=== PATIENT | male | born 1975 | race Caucasian/White ===

== ENCOUNTER 2019-12-20 08:52 | Outpatient (CLI) | payer BC, SELFPAY ==
--- NOTE | 2019-12-20 08:15 | XR_ITS ---
WS: [id number] KUB, 12/20/2019 Clinical Data: KIDNEY STONE Comparison: KUB, 12/19/2017. Findings: No abnormal intraabdominal masses or calcifications are seen. There is no dilatated small bowel or ev idence of obstruction. There is a moderate amount of fecal material throughout the colon. XR/XR KUB [id number] Impression: Negative KUB.
== END 2019-12-20 08:53 | disposition home or self-care (01) ==
LOC: RAD 08:56
PROVIDERS: Family Provider Internal Medicine; PCP Internal Medicine; Visit Provider Urology
DX: N20.0 Calculus of kidney (principal)
CPT/HCPCS: 74018; 81001

== ENCOUNTER → 2020-05-27 14:21 | Outpatient (BNVA) | payer BC, SELFPAY | PROVIDERS: Family Provider Internal Medicine; PCP Family Medicine; Visit Provider Surgery | DX: Z11.59 Encounter for screening for other viral diseases (principal); K42.9 Umbilical hernia without obstruction or gangrene | CPT/HCPCS: 87635 ==

== ENCOUNTER 2020-05-30 12:26 | Outpatient (CLI) | payer BC, SELFPAY ==
--- NOTE | 2020-05-30 14:00 | CT_ITS ---
WS: [id number] CT ABDOMEN AND PELVIS WITH CONTRAST HISTORY: K42.0 - Umbilical hernia with obstruction, without gangrene TECHNIQUE: Imaging performed of the abdomen and pelvis with IV contrast. Single phase imaging of the abdomen. Coronal and sagittal reformats are submitted. All CT scans at [facility] use at least one of these dose optimization techniques: automated exposure control; mA and/or kV adjustment per patient size (includes targeted exams where dose is matched to clinical indication); or iterativ e reconstruction. IV CONTRAST: Omnipaque 300; 95 mL IV. Oral contrast: No DLP: 902.85 mGy.cm COMPARISON: 05/23/2014 Lower thorax: Benign calcified granuloma LEFT lung base. Heart is normal size. Small hiatal hernia. Liver/biliary system: Normal size with no intrahepatic dilatation. Gallbladder: Normal. No gallstones or wall thickening. No pericholecystic fluid. Pancreas: Normal. Spleen: Normal. Adrenal glands: Normal. Right kidney: Normal. Left kidney: Normal. Aorta: Normal. Lymphadenopathy: None. Free fluid: None. GI tract: Normal appendix. No GI tract obstruction. Numerous diverticula in the distal and descending colon. No acute inflammatory changes. Abdominal wall: Umbilical hernia contains fat. The fat within the umbilical hernia is reticulated wit h stranding suggesting some ongoing fat necrosis and inflammation. No free fluid. Pelvis: Normal. Bones: Unremarkable. CT/CT abdomen pelvis w con* [id number] IMPRESSION: 1. Umbilical hernia containing fat with soft tissue reticulations. Findings ar e consistent with mild fat necrosis of the omental fat and the umbilical hernia . 2. Normal appendix. Next number no renal obstruction. 3. Colonic diverticulosis without acute diverticulitis.
== END 2020-05-30 12:27 | disposition home or self-care (01) ==
LOC: RAD 12:30
PROVIDERS: PCP Family Medicine; Visit Provider Surgery
DX: K42.0 Umbilical hernia with obstruction, without gangrene (principal); K57.30 Diverticulosis of large intestine without perforation or abscess without bleeding
CPT/HCPCS: 74177

== ENCOUNTER 2020-06-02 05:44 | Day surgery (SDC) | payer BC, SELFPAY ==
[2020-05-30 11:06] VITALS: BMI 32.1
[2020-06-02] VITALS (10 sets, daily range): BP systolic 119–141; BP diastolic 65–99; PULSE 52–74; RESP 14–18; TEMP 36.8–37.2; O2SAT 90–99
[2020-06-02] MEDS: sodium chloride 0.9% 1,000 ML 30 ML IV (06:09)
--- NOTE | 2020-06-02 06:23 | ANES.PREANE2 ---
Pre-Anesthetic Assessment Pre-Anesthetic Assessment: Height/Weight: Height 1.8 m Weight 104.326 kg Temp Pulse Resp BP Pulse Ox 98.3 F 64 18 127/99 99 06/02/20 06:02 06/02/20 06:02 06/02/20 06:02 06/02/20 06:02 06/02/20 06:02 Preop Diagnosis: Umbilical hernia Proposed Procedure: Operation Date: 06/02/20 07:00 Proposed Procedures p open Umbilical Hernia Repair w/ possible Mesh 37629 k42.0(Not Applicable) - Ozzy Fritz MD Familial anesthetic complications: None Was Beta Maggie taken within 24 hours: N/A Last intake: Intake Last Liquid Date 06/02/20 Last Liquid Time 05:00 Last Solid Date 06/01/20 Last Solid Time 22:00 Social: Social History: No alcohol and No tobacco Exam: Pre-Anes Outpt Exam: alert, oriented x 3, clear to auscultation bilaterally and regular rate & rhythm Airway: Cervical ROM: WNL MP: 3 Dentition: Other (missing) CV/HEM: CV/HEM: HTN Anesthetic Plan: ASA status: 2 Anesthesia: General Risk of > 500 ml blood loss (7ml/kg in children): No Meds/Allergies Current Medications: Current Medications Generic Name Dose Route Start Last Admin Trade Name Freq PRN Reason Stop Dose Admin Sodium Chloride 1,000 mls @ 30 ml s/hr 06/02/20 05:45 06/02/20 06:09 Sodium Chloride 0.9% IV 30 mls/hr .Q24H HUMERA Administration PFSH Anesthesia PFSH: Medical History (Updated 05/27/20 @ 18:43 by Ozzy Fritz MD) Calculus of kidney GERD (gastroesophageal reflux disease) HTN (hypertension) Hyperlipidemia Umbilical hernia, incarcerated Family History Father Hypertension Mother CAD (coronary artery disease) MITRAL VALVE PROLAPSE Social History Smoking and tobacco status: never smoked Alcohol intake: unknown Adopted: No Caregiver/support person: No Lives independently: No Household members: spouse Marital status: Current occupational status: employed History of recent travel: No Current gender identity: Male Data Anesthesia Cardiac Studies: No Data to Display
--- NOTE | 2020-06-02 06:57 | W.PM.OPSUD ---
Surgery/Procedure H&P Update DATE OF PROCEDURE: June 02, 2020 DATE H&P PERFORMED: 05/27/20 H&P UPDATE INFORMATION: I have reviewed H&P completed within last 30 days, I have examined patient prior to procedure and No changes to prior documentation PREOP DIAGNOSIS: Umbilical hernia PLANNED PROCEDURE: Operation Date: 06/02/20 07:00 Proposed Procedures p open Umbilical Hernia Repair w/ possible Mesh [id number] k42.0(Not Applicable) - Ozzy Fritz MD
[2020-06-02] MEDS: lidocaine 1% INJ 20 mL SUBCUT (07:34)
[2020-06-02] MEDS: fentaNYL 50 mcg/mL INJ 2mL IVP (07:58)
--- NOTE | 2020-06-02 08:01 | PM.OP ---
Operative Report Date of procedure: June 02, 2020 Pre-op Diagnosis: Umbilical hernia Post-op Findings: Strangulated umbilical hernia containing omentum with fat necrosis Procedure Done: Open repair of umbilical hernia Specimens removed/disposition: Omentum Surgeon: Ozzy Fritz Anesthesia: General Condition: stable Disposition: PACU Procedure: The patient was taken to the operating room and intubated under general anesthesia after IV antibiotic had been administered. The abdomen was prepped and draped in a sterile manner. A 2 cm infraumbilical curvilinear incision was made using a 15 blade, a hernial sac dissected out using electrocautery and dissection with hemostats. The hernial sac was opened and there was some strangulation of the omentum noted with mild fat necrosis. The herniated omentum was excised. Interrupted sutures using 0 Vicryl was used to close the hernial defect without any tension. The subcutaneous tissue was approximated using 3-0 Vicryl and skin was closed using running subcuticular 4-0 Monocryl sutures. Dermabond was then applied and 20 mL of 0.5% Marcaine was infiltrated around the incision. A 2 x 2 gauze was then placed within the umbilicus and sterile dressings are applied. The patient was stable throughout the procedure.
[2020-06-02] MEDS: ketorolac 10 mg Tablet PO (08:36)
--- NOTE | 2020-06-02 15:08 | ANE.PACU2 ---
Inpatient post-anesthesia follow up: Airway intact: Yes Vital signs: Temperature 98.2 F Pulse Rate 58 Respiratory Rate 18 Blood Pressure 125/69 Pulse Oximetry 94 Oxygen Delivery Me thod Room Air Oxygen Flow Rate 8 Fraction of Inspir ed Oxygen 8 Hydration adequate: Yes Nausea and vomiting: No Pain level: 4 Mental status: Baseline
== END 2020-06-02 09:10 | disposition home or self-care (01) ==
PROVIDERS: PCP Family Medicine; Visit Provider Surgery
PROC: (CPT 49587; principal; 2020-06-02 07:00)
DX: K42.0 Umbilical hernia with obstruction, without gangrene (principal); I10 Essential (primary) hypertension; K21.9 Gastro-esophageal reflux disease without esophagitis; E78.5 Hyperlipidemia, unspecified
CPT/HCPCS: 49587; 12345; 88305; 96365; J0690; J1100; J1885; J2250; J2405; J2704; J2710; J3010; J3490; J7030

== ENCOUNTER → 2020-07-18 14:17 | Outpatient (BNVA) | payer OTHER, SELFPAY | PROVIDERS: PCP Family Medicine; Visit Provider Nurse Practitioner Family | DX: Z20.828 Contact with and (suspected) exposure to other viral communicable diseases (principal) | CPT/HCPCS: 87635 ==

== ENCOUNTER 2020-12-15 16:41 | Outpatient (CLI) | payer OTHER, SELFPAY ==
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
== END 2020-12-15 16:42 | disposition home or self-care (01) ==
PROVIDERS: PCP Family Medicine; Visit Provider Family Medicine
DX: R07.81 Pleurodynia (principal)
CPT/HCPCS: 71100